=== PATIENT | female | born 1980 | race Caucasian/White ===

== ENCOUNTER 2018-08-18 07:36 | Day surgery (SDC) | payer OTHER ==
[2018-08-18] MEDS ORDERED: LR 1,000 ML IV ONE (07:50)
--- NOTE | 2018-08-18 08:41 | PDANEPAE ---
ANE History of Present Illness Hx ETOH abuse and esophageal varices for EGD ANE Past Medical History - Cardiovascular History Hx Hypertension: Yes Hx Arrhythmias: No Hx Chest Pain: No Hx Coronary Artery / Peripheral Vascular Disease: No Hx CHF / Valvular Disease: No Hx Palpitations: Yes Cardiovascular History Comment: OCCAS PALPITATIONS - Pulmonary History Hx COPD: No Hx Asthma/Reactive Airway Disease: No Hx Recent Upper Respiratory Infection: No Hx Oxygen in Use at Home: No Hx Sleep Apnea: No Sleep Apnea Screening Result - Last Documented: Negative Pulmonary History Comment: POS SOHAM TRIGGERS - Neurologic History Hx Cerebrovascular Accident: No Hx Seizures: No Hx Dementia: No - Endocrine History Hx Diabetes: No - Renal History Hx Renal Disorders: No - Liver History Hx Hepatic Disorders: No Hepatic History Comment: ENLARGED LIVER - MONITORED BY PCP W/LABS RETURNING CLOSER TO NORMAL - Neurological & Psychiatric Hx Hx Neurological and Psychiatric Disorders: Yes Neurological / Psychiatric History Comment: ANXIETY - Cancer History Hx Cancer: No - Congenital Disorder History Hx Congenital Disorders: No - GI History Hx Gastrointestinal Disorders: Yes Gastrointestinal History Comment: ACID REFLUX - Other Health History Other Health History: PLATLETS RUN LOW - PCP MONITORING AND RECHECKS - Chronic Pain History Chronic Pain: Yes (ELBOW R) - Surgical History Prior Surgeries: EGDs ANE Review of Systems Review of Systems: - Exercise capacity METS (RN): 5 METS ANE Patient History - Allergies Allergies/Adverse Reactions: No Known Allergies Allergy (Unverified 08/06/18 12:03) - Home Medications Home medications: home medication list seen and reviewed Home Medications: Multivitamin 08/06/18 [Last Taken Unknown] Nadolol 08/06/18 [Last Taken Unknown] Paxil 08/06/18 [Last Taken Unknown] Prevacid 08/06/18 [Last Taken Unknown] Spironolactone 08/06/18 [Last Taken Unknown] Wellbutrin Sr 08/06/18 [Last Taken Unknown] - NPO status NPO Status: no food or drink >8 hours NPO Since - Liquids (Date): 08/18/18 NPO Since - Liquids (Time): 06:50 NPO Since - Solids (Date): 08/17/18 NPO Since - Solids (Time): 21:00 - Anes Hx Anes Hx: no prior problems - Smoking Hx Smoking Status: Former smoker - Alcohol Use Alcohol Use: Heavy (Last 2 days ago) ANE Labs/Vital Signs - Vital Signs Blood Pressure: 119/84 Heart Rate: 70 Respiratory Rate: 16 O2 Sat (%): 97 Height: 165.1 cm Weight: 78.018 kg ANE Physical Exam - Airway Neck exam: FROM Mallampati Score: Class 2 Mouth exam: normal dental/mouth exam - Pulmonary Pulmonary: no respiratory distress - Cardiovascular Cardiovascular: regular rate and rhythym - ASA Status ASA Status: III ANE Anesthesia Plan Anesthesia Plan: MAC (vs IV GA)
[2018-08-18] MEDS ORDERED: PROPOFOL/EMULSION 500 MG/50 ML BOTTLE IV ONE (08:55)
[2018-08-18] MEDS ORDERED: LIDOCAINE 2% 2 ML INJ ONE (08:55)
--- NOTE | 2018-08-18 09:10 | PDGENHP ---
History & Physical Chief Complaint: varices History of Present Illness: alcoholic cirrhosis. hx varices Pertinent Past, Social, Family History: tobacco none. alcohol abuse last drink friday. fhx - no liver issues, skin cancer Relevant Physical Exam: a+ox3. cta. s1s23. +BS soft RUQ tenderness Cardiorespiratory Assessment: class 3
[2018-08-18] MEDS ORDERED: NALOXONE HCL 0.4 MG/ML INJ IVP PRN (09:30)
[2018-08-18] MEDS ORDERED: fentaNYL 100 MCG/2 ML INJ IVP PRN (09:30)
[2018-08-18] MEDS ORDERED: ONDANSETRON 4 MG/2 ML VIAL IVP PRN (09:30)
--- NOTE | 2018-08-18 09:41 | POSTANESTH ---
Post Anesthetic Evaluation Cardiovascular Status: Similar to Pre-Op Cond Respiratory Status: Similar to Pre-op Cond. Level of Consciousness/Mental Status: Alert and Oriented Pain Control: Adequate, Prn Tx Ordered Nausea/Vomiting Control: Adequate, Prn Tx Ordered Complications Possibly Related to Anesthesia: None Noted
--- NOTE | 2018-08-18 10:00 | GIREPORT ---
[facility] Surgical Services - Endoscopy Department Patient Name: Leslie Bales Procedure Date: 08/18/2018 8:33 AM Patient Type: Outpatient Attending MD/ ER Physician: Rex Sotomayor MD Procedure: Upper GI endoscopy Indications: Follow-up of esophageal varices Providers: Rex Sotomayor MD Referring MD: Josh Gordon MD Medicines: Propofol per Anesthesia Complications: No immediate complications. Estimated blood loss: Minimal. Description of Procedure: After obtaining informed consent, the endoscope was passed under direct vision. Throughout the procedure, the patient's blood pressure, pulse, and oxygen saturations were monitored continuously. The Endoscope was intro duced through the mouth, and advanced to the third part of duodenum. The uppe r GI endoscopy was accomplished without difficulty. The patient tolerated th e procedure well. Findings: Grade I varices were found in the lower third of the esophagus. They we re 2 mm in largest diameter. Multiple pedunculated and sessile polyps with no bleeding and no stigma ta of recent bleeding were found in the gastric body. Biopsies were taken wit h a cold forceps for histology. Estimated blood loss was minimal. Patchy mild inflammation characterized by erythema and granularity was found in the gastric antrum. Biopsies were taken with a cold forceps for histology. Estimated blood loss was minimal. The examined duodenum was normal. The exam was otherwise without abnormality. Estimated Blood Loss: Estimated blood loss was minimal. Post Op Diagnosis: - Trace esophageal varices. Essentially eradicated - No gastric varices. - Multiple gastric polyps. Biopsied. Previous fundic gland polyps - Gastritis. Biopsied. - Normal examined duodenum. - The examination was otherwise normal. Recommendation: - Continue present medications. - Repeat upper endoscopy in 6 months for surveillance. - Resume previous diet. - Patient has a contact number available for emergencies. The signs and symptoms of potential delayed complications were discussed with the pat ient. Return to normal activities tomorrow. Written discharge instructions we re provided to the patient. - Continue present medications. - Discharge patient to home (ambulatory). - Return to primary care physician as previously scheduled. - Return to GI clinic as previously scheduled. Has appt August 26, 2018 - Thank you for allowing me to help in your patient's care. Do not hesi melara to call with any questions. Attending Participation: I personally performed the entire procedure. Светлана Coley M.D Rex Sotomayor MD 08/18/2018 10:00:29 AM This report has been signed electronicallyMatthew MD Светлана Number of Addenda: 0 Note Initiated On: 08/18/2018 8:33 AM [email or web address]
[2018-08-18 10:57] VITALS: BP 116/78
== END 2018-08-18 11:02 | disposition home or self-care (01) ==
LOC: FSGY 07:36
PROVIDERS: ATTEND Internal Medicine Gastroenterology
PROC: 0DB68ZX Excision of Stomach, Via Natural or Artificial Opening Endoscopic, Diagnostic (ICD-10-PCS; principal; 2018-08-18 09:00)
DX: K31.7 Polyp of stomach and duodenum (principal); I85.10 Secondary esophageal varices without bleeding; K70.30 Alcoholic cirrhosis of liver without ascites; K29.20 Alcoholic gastritis without bleeding; F10.99 Alcohol use, unspecified with unspecified alcohol-induced disorder
CPT/HCPCS: J2704